=== PATIENT | male | born 1965 | race Caucasian/White ===

== ENCOUNTER 2019-06-03 03:14 | Emergency (ER) | payer OTHER ==
[~2019-06-03] VITALS: Ht 172.7 cm; Wt 74.8 kg
[2019-06-03 04:18] LABS: ANION GAP 10 mmol/L (7-16); BUN 11 mg/dL (7-18); CALCIUM 9.3 mg/dL (8.5-10.1); CHLORIDE 102 mmol/L (98-107); CO2 25 mmol/L (21-32); CREATININE 0.9 mg/dL (0.7-1.3); GLUCOSE 143 mg/dL (74-106); POTASSIUM 4.4 mmol/L (3.5-5.1); SODIUM 137 mmol/L (136-145)
[2019-06-03 04:28] LABS: ALBUMIN 3.7 g/dL (3.4-5.0); LIPASE 156 U/L (73-393); SGOT 27 U/L (15-37); SGPT 23 U/L (30-65); TOTAL BILIRUBIN 0.6 mg/dL (<0.1-1.0); TOTAL PROTEIN 7.8 g/dL (6.4-8.2); TROPONIN-I <0.06 ng/mL (<0.06)
[2019-06-03 05:06] LABS: ABSOLUTE NEUTROPHILS 14.7 thou/uL (1.4-8.2); BASOPHILS 0.2 % (0.0-2.0); EOSINOPHILS 0.1 % (0.0-3.0); HEMATOCRIT 40.4 % (42.0-52.0); HEMOGLOBIN 13.6 gm/dL (14.0-18.0); LYMPHOCYTES 3.3 % (24.0-44.0); MCH 31.4 pg (26.0-34.0); MCHC 33.6 g/dL (28.0-37.0); MCV 93.5 fL (80.0-100.0); MONOCYTES 5.6 % (1.0-8.0); PLATELET COUNT 240 thou/uL (150-400); POLYS 90.8 % (36.0-66.0); RBC 4.32 mil/uL (4.50-6.00); RDW 14.1 % (10.5-14.5); WBC 16.1 thou/uL (4.0-11.0)
[2019-06-03] MEDS ORDERED: ONDANSETRON ODT8 MG PO (05:54)
[2019-06-03] MEDS ORDERED: PRILOSEC OTC20 MG PO (05:54)
[2019-06-03] MEDS ORDERED: TRAMADOL 50 MG50 MG PO (05:54)
[2019-06-03 06:16] VITALS: BP 135/80
--- NOTE | 2019-06-06 07:58 | EKG ---
[place] [address] [facility] [place] [address] ELECTROCARDIOGRAM REPORT Name: DE GUZMANAFIA Room #: DEP [facility]#: [id number] Admission: 06/03/19 Attend Phys: Discharge: 06/03/19 Date of : 61 Report #: [id number] THIS REPORT FOR: //name// [facility] ED Test Date: 2019-06-03 Test Time: 03:44:19 Pat Name: AFIA DE GUZMAN Department: Room: Gender: Drafter Chief Design: : 1965 Requested By: Jesus Alberto Tomas Order Number: [id number] MD: Tye Fritz Measurements Intervals [place] Rate: 94 P: 29 MD: 167 QRS: 82 QRSD: 95 T: 26 QT: 368 QTc: 461 Interpretive Statements Sinus rhythm Abnormal R-wave progression, early transition No previous ECG available for comparison Electronically Signed On 06-06-2019 7:57:53 CDT by Tye Fritz [email or web address] <ELECTRONICALLY SIGNED> By: Tye Fritz MD, [facility] 06/06/19 [id number] Tye Fritz MD, FACC /EPI
== END 2019-06-03 06:16 | disposition home or self-care (01) ==
LOC: ER 03:14
PROVIDERS: Emergency Medicine
DX: D72.829 Elevated white blood cell count, unspecified (principal); R11.2 Nausea with vomiting, unspecified; R91.8 Other nonspecific abnormal finding of lung field; J45.909 Unspecified asthma, uncomplicated; Z88.8 Allergy status to other drugs, medicaments and biological substances